=== PATIENT | female | born 1995 ===

== ENCOUNTER 2023-06-12 14:49 | Outpatient (CLI) | payer OTHER | END 2023-06-12 17:10 | disposition home or self-care (01) | LOC: PRENATAL 14:49 | PROVIDERS: ATTEND Obstetrics & Gynecology Maternal & Fetal Medicine | DX: O35.9XX0 Maternal care for (suspected) fetal abnormality and damage, unspecified, not applicable or unspecified (principal); O35.3XX0 Maternal care for (suspected) damage to fetus from viral disease in mother, not applicable or unspecified; O26.879 Cervical shortening, unspecified trimester; Z3A.22 22 weeks gestation of pregnancy ==

== ENCOUNTER 2023-06-26 15:01 | Outpatient (CLI) | payer OTHER | END 2023-06-26 16:54 | disposition home or self-care (01) | LOC: PRENATAL 15:01 | PROVIDERS: ATTEND Obstetrics & Gynecology Maternal & Fetal Medicine | DX: O26.879 Cervical shortening, unspecified trimester (principal); Z3A.24 24 weeks gestation of pregnancy ==

== ENCOUNTER 2023-07-12 15:02 | Outpatient (CLI) | payer OTHER | END 2023-07-12 16:18 | disposition home or self-care (01) | LOC: PRENATAL 15:02 | PROVIDERS: ATTEND Obstetrics & Gynecology Maternal & Fetal Medicine | DX: O26.849 Uterine size-date discrepancy, unspecified trimester (principal); O26.879 Cervical shortening, unspecified trimester; Z3A.26 26 weeks gestation of pregnancy ==